=== PATIENT | male | born 1975 | race Caucasian/White ===

== ENCOUNTER 2018-03-15 12:54 | Emergency (ER) | payer OTHER ==
[~2018-03-15] VITALS: Ht 172.7 cm; Wt 61.2 kg
[2018-03-15] MEDS ORDERED: IBUPROFEN 600600 M1 PO (14:25)
[2018-03-15 15:06] VITALS: BP 121/76
== END 2018-03-15 15:07 | disposition home or self-care (01) ==
LOC: ER 12:54
DX: S62.395A Other fracture of fourth metacarpal bone, left hand, initial encounter for closed fracture (principal); W51.XXXA Accidental striking against or bumped into by another person, initial encounter; Y93.89 Activity, other specified; Y92.89 Other specified places as the place of occurrence of the external cause; Y99.8 Other external cause status